=== PATIENT | male | born 1975 | race Caucasian/White ===

== ENCOUNTER 2018-12-15 19:29 | Emergency (ER) | payer BC ==
[~2018-12-15] VITALS: Ht 182.9 cm; Wt 107.3 kg
[2018-12-15 20:20] LABS: BASOPHILS # (AUTO) 0.1 X10'3 (0-0.2); BASOPHILS % (AUTO) 0.8 % (0-1); EOSINOPHILS # (AUTO) 0.1 X10'3 (0-0.9); EOSINOPHILS % (AUTO) 1.4 % (0-6); HEMOGLOBIN 15.6 g/dl (14.0-17.9); LYMPHOCYTES # (AUTO) 1.5 X10'3 (1.1-4.8); LYMPHOCYTES % (AUTO) 19.7 % (21-51); MEAN CORPUSCULAR HEMOGLOBIN 25.7 PG (27.0-31.0); MEAN CORPUSCULAR HGB CONC 32.5 g/dL (33.0-36.5); MEAN PLATELET VOLUME 8.9 FL (7.4-10.4); MONOCYTES # (AUTO) 0.8 X10'3 (0-0.9); MONOCYTES % (AUTO) 10.7 % (2-12); NEUTROPHILS # (AUTO) 5.1 X10'3 (1.8-7.7); NEUTROPHILS % (AUTO) 67.4 % (42-75); PLATELET COUNT 200 X10'3 (140-440); RED BLOOD COUNT 6.08 X10'6 (4.70-6.10); RED CELL DISTRIBUTION WIDTH 14.8 % (11.5-14.5); WHITE BLOOD COUNT 7.5 X10'3 (4.5-11.0)
[2018-12-15 20:23] LABS: ALANINE AMINOTRANSFERASE 49 U/L (12-78); ALBUMIN 4.3 G/DL (3.4-5.0); ALBUMIN/GLOBULIN RATIO 1.2 (1.1-1.5); ALKALINE PHOSPHATASE 56 IU/L (46-116); ANION GAP 9 (8-16); ASPARTATE AMINO TRANSFERASE 28 U/L (10-37); BILIRUBIN,TOTAL 0.4 MG/DL (0.1-1.0); BLOOD UREA NITROGEN 14 MG/DL (7-18); BUN/CREATININE RATIO 12.7 (5.4-32.0); CHLORIDE 103 MMOL/L (99-107); GLUCOSE 100 MG/DL (70-104); POTASSIUM 4.1 MMOL/L (3.5-5.1); SODIUM 139 MMOL/L (135-145); TOTAL CARBON DIOXIDE 27.4 MMOL/L (24-32); TOTAL PROTEIN 7.9 G/DL (6.4-8.2); eGFR 72 ML/MIN
[2018-12-15 20:33] LABS: PARTIAL THROMBOPLASTIN TIME 26 SECONDS (22-32)
[2018-12-15] MEDS ORDERED: meclizine 12.5mg tablet PO ONE (21:05)
[2018-12-15 21:57] LABS: D-DIMER 0.27 MG/L FEU (0-0.50)
[2018-12-15] MEDS ORDERED: MECL-111 PO (23:28)
[2018-12-15 23:38] VITALS: BP 137/74
== END 2018-12-15 23:38 | disposition home or self-care (01) ==
LOC: ER 19:29
DX: R07.89 Other chest pain (principal); R42 Dizziness and giddiness; Z79.899 Other long term (current) drug therapy
CPT/HCPCS: 36415; 71045; 80053; 84484; 85025; 85379; 85610; 85730; 93005; 99284; J8597

== ENCOUNTER 2020-09-27 11:56 | Observation (INO) | payer BC ==
[2020-09-24 14:21] LABS: BASOPHILS % (AUTO) 0.4 % (0-1); EOSINOPHILS # (AUTO) 0.1 X10'3 (0-0.9); LYMPHOCYTES # (AUTO) 1.7 X10'3 (1.1-4.8); LYMPHOCYTES % (AUTO) 19.5 % (21-51); MEAN CORPUSCULAR HEMOGLOBIN 28.4 PG (27.0-31.0); MEAN CORPUSCULAR VOLUME 83.6 FL (78-98); MEAN PLATELET VOLUME 9.3 FL (7.4-10.4); MONOCYTES # (AUTO) 0.6 X10'3 (0-0.9); MONOCYTES % (AUTO) 7.2 % (2-12); NEUTROPHILS # (AUTO) 6.1 X10'3 (1.8-7.7); NEUTROPHILS % (AUTO) 71.9 % (42-75); PRE OP HEMATOCRIT 54.9 % (42.0-52.0); PRE OP PLATELET COUNT 185 X10'3 (140-440); RED BLOOD COUNT 6.57 X10'6 (4.70-6.10)
[2020-09-24 14:24] LABS: PRE OP HEMOGLOBIN 18.7 g/dL (14.0-17.9)
[2020-09-24 14:34] LABS: PRE OP INR 1.1 INR; PRE OP PROTIME 10.9 SECONDS (9.0-12.0)
[2020-09-24 14:42] LABS: ALBUMIN 4.2 G/DL (3.4-5.0); ALBUMIN/GLOBULIN RATIO 1.2 (1.1-1.5); ALKALINE PHOSPHATASE 73 IU/L (46-116); BLOOD UREA NITROGEN 18 MG/DL (7-18); BUN/CREATININE RATIO 17.1 (5.4-32.0); CALCIUM 9.2 MG/DL (8.5-10.1); CHLORIDE 103 MMOL/L (99-107); CREATININE 1.05 MG/DL (0.60-1.10); PRE OP ALT 57 U/L (30-65); PRE OP ANION GAP 10 (8-16); PRE OP AST 28 U/L (10-37); PRE OP BILIRUB, TOTAL 0.5 MG/DL (0.0-1.0); PRE OP GLUCOSE 116 MG/DL (70-104); PRE OP POTASSIUM 3.8 MMOL/L (3.4-5.1); PRE OP SODIUM 141 MMOL/L (135-145); TOTAL PROTEIN 7.8 G/DL (6.4-8.2); eGFR 76 ML/MIN
[~2020-09-27] VITALS: Ht 182.9 cm; Wt 111.9 kg
[2020-09-27] VITALS (25 sets, daily range): BP systolic 118–159; BP diastolic 66–101
[~2020-09-27 11:56] MED LIST: ASCO-134 PO; IBUP-1984 PO; TEST200V10 IM; cefazolin/dext.iso 2gm/100ml IV ONE; famotidine 20mg tablet PO ONE; scopolamine 1mg/72 hr patch TD SCH; vancomycin 1,500 MG in NS 300ml IV soln IV ONE
[2020-09-27] MEDS ORDERED: fentaNYL/PF 50MCG/1 ML 2ML syringe IV PRN ×2 (12:20)
[2020-09-27] MEDS ORDERED: morphine 4 MG/ML inj SYRINge IV PRN (12:20)
[2020-09-27] MEDS ORDERED: morphine 2 MG/ML inj. syringe IV PRN (12:20)
[2020-09-27] MEDS ORDERED: hydrALAZINE 20mg/ml inj. IV PRN (12:20)
[2020-09-27] MEDS ORDERED: ondansetron/PF 4mg/2ml inj IV PRN ×2 (12:20→16:35)
[2020-09-27] MEDS ORDERED: labetalol 20mg/4ml (5mg/ml) syringe IV PRN (12:20)
[2020-09-27] MEDS ORDERED: ringers solution, lacted 1,000 ML IV SCH (12:20)
[2020-09-27] MEDS: ringers solution, lacted 1,000 ML IV SCH ×2 (12:28→20:41)
[2020-09-27] MEDS ORDERED: BUPIVAcaine/PF 2.5 mg/ml (0.25%) 30ml vial ONE (13:05)
[2020-09-27] MEDS ORDERED: sevoflurane 250ml liquid IH ONE (13:20)
[2020-09-27] MEDS ORDERED: MIDAZolam 1 MG/ML 5ML VIAL ONE (13:22)
[2020-09-27] MEDS ORDERED: fentaNYL /PF 50mcg/ml 5ml ampule ONE (13:22)
[2020-09-27] MEDS ORDERED: propofol inj 20 ML IV ONE ×2 (13:26→13:58)
[2020-09-27] MEDS ORDERED: dexamethasone sod phosphate 4mg/ml inj. ONE (13:26)
[2020-09-27] MEDS ORDERED: ondansetron/PF 4mg/2ml inj ONE (13:26)
[2020-09-27] MEDS ORDERED: LIDOcaine 2% (20mg/ml) 5ml vial ONE (13:26)
[2020-09-27] MEDS ORDERED: fentaNYL/PF 50MCG/1 ML 2ML syringe ONE (16:13)
[2020-09-27] MEDS ORDERED: ketorolac trometh. 30mg/ml inj. ONE (16:14)
--- NOTE | 2020-09-27 16:34 | NUR ---
Received from OR via [facility], accompanied by Anesthesiologist DR DICKSON and report given by Anesthesiologist. PT DROWSY, LEFT ARM W/DELL WRAP COVERING INCISION/DRSG/SPLINT CDI. FINGERS PWD, EXPLOSIVE SPECIALIST 1-2 SECONDS. Addendum: 09/27/20 at 1701 by Disha Yang RN Amended: Links added.
[2020-09-27] MEDS ORDERED: acetaminophen 325mg tablet PO PRN (16:35)
[2020-09-27] MEDS ORDERED: bisacodyl 10mg suppository rectal RC PRN (16:35)
[2020-09-27] MEDS ORDERED: magnesium hydroxide 30ml (MOM) UD suspension PO PRN (16:35)
[2020-09-27] MEDS ORDERED: HYDROcodone/acetaminophen 10/325mg tab PO PRN ×2 (16:35)
[2020-09-27] MEDS ORDERED: HYDROmorphone 1 mg/ml syringe IV PRN (16:35)
[2020-09-27] MEDS ORDERED: diphenhydrAMINE 25mg capsule PO PRN ×2 (16:35)
[2020-09-27] MEDS ORDERED: aspirin 325mg tablet PO SCH (17:30)
--- NOTE | 2020-09-27 18:30 | NUR ---
Patient in room . I have received report from Samreen HUNTER and had the opportunity to ask questions and assume patient care.
--- NOTE | 2020-09-27 18:54 | NUR ---
Report called to receiving nurse. Transferred via GURNEY, PT ABLE TO AMBULATE TO BED W/STANDBY ASSIST, SIDE RAILS UP X 2, CALL LIGHT GIVEN, BLL. 1 BAG OF Belongings SENT W/PT TO ROOM 4014B. RECEIVING RN AT BEDSIDE TO RECEIVE ADDITIONAL REPORT. Special Issues communicated to receiving nurse. YES. Addendum: 09/27/20 at 1905 by Disha Yang RN Amended: Links added.
--- NOTE | 2020-09-27 19:08 | NUR ---
Pt arrived fr/RR via WC and ambulated to bed, 4014B. Oriented to bed, room, and POC. Alert and oriented, experiencing post-op pain to L arm operative site. Drsg is CDI from L fingers to upper arm, splint and sling in place, able to wiggle fingers, skin to hand and fingers are warm to touch. L arm elevated on pillows f/comfort.
[2020-09-27] MEDS ORDERED: vancomycin/NS 1 GM ADD-VANTAGE 250 ML IV SCH (20:00)
[2020-09-27] MEDS ORDERED: VANCOMYCIN 1GM/200ML IVPB 200 ML IV SCH (20:00)
[2020-09-27] MEDS: aspirin 81mg tablet.DR PO SCH (20:13)
[2020-09-27] MEDS ORDERED: sennosides 8.6mg tablet PO SCH (21:00)
[2020-09-27] MEDS: potassium Cl 20mEq in NS 1,000 ML IV SCH (22:14)
[2020-09-28 00:45] VITALS: BP 120/76
[2020-09-28] MEDS: ceFAZolin/D5W- 1GM premix 50 ML IV SCH ×2 (01:03→08:50)
[2020-09-28 02:00] VITALS: BP 120/76
--- NOTE | 2020-09-28 06:41 | NUR ---
Patient in room ORTHO 4014. I have received report from Mitzi HUNTER and had the opportunity to ask questions and assume patient care.
--- NOTE | 2020-09-28 06:47 | NUR ---
Problems reprioritized. Patient report given, questions answered & plan of care reviewed with Cassi HUNTER.
[2020-09-28 07:00] VITALS: BP 162/68
[2020-09-28] MEDS: aspirin 81mg tablet.DR PO SCH (08:23)
[2020-09-28 10:00] VITALS: BP 137/74
[2020-09-28] MEDS: potassium Cl 20mEq in NS 1,000 ML IV SCH (12:25)
[2020-09-28 14:00] VITALS: BP 137/77
--- NOTE | 2020-09-28 16:16 | NUR ---
Discharge instructions given to patient, patient verbalized understanding of instructions made. Peripheral IV catheter removed, tip intact. Instructed patient to ensure he has all his belongings with him prior to leaving the hospital. Original, written prescription for [facility] given to patient (clipped on the discharge folder).
== END 2020-09-28 16:16 | disposition home or self-care (01) ==
LOC: PAS 11:56 → ORTHO 4S 18:58
PROVIDERS: ADMIT Orthopaedic Surgery; ATTEND Orthopaedic Surgery
DX: S46.212A Strain of muscle, fascia and tendon of other parts of biceps, left arm, initial encounter (principal); Z20.822 Contact with and (suspected) exposure to COVID-19; G47.30 Sleep apnea, unspecified; R94.31 Abnormal electrocardiogram [ECG] [EKG]; Z87.891 Personal history of nicotine dependence; X58.XXXA Exposure to other specified factors, initial encounter; Y93.89 Activity, other specified; Y92.89 Other specified places as the place of occurrence of the external cause
CPT/HCPCS: 24320; 36415; 80053; 85025; 85610; 85730; 87081; 93005; 93306; 96361; 96365; 96366; A6223; G0378; J0690; J1100; J1885; J2001; J2250; J2405; J2704; J3010; J3370; J3480; J3490; J7040; U0003; U0005; A4215; A4618; A6449; A7000; J7120

== ENCOUNTER 2021-05-17 09:32 | Emergency (ER) | payer BC ==
[~2021-05-17] VITALS: Ht 182.9 cm; Wt 103.0 kg
[2021-05-17 09:51] VITALS: BP 144/87
== END 2021-05-17 13:32 | disposition home or self-care (01) ==
LOC: ER 09:34
DX: U07.1 COVID-19 (principal); Z87.891 Personal history of nicotine dependence; Z98.890 Other specified postprocedural states
CPT/HCPCS: 71045; 93005; 99283